=== PATIENT | female | born 1965 | race Caucasian/White ===

== ENCOUNTER 2016-07-26 19:52 | Emergency (ER) | payer OTHER ==
[~2016-07-26] VITALS: Ht 162.6 cm; Wt 107.6 kg
[~2016-07-26 19:52] MED LIST: 12 HOUR DECONG120 M1 PO; ACCOLATE20 MG PO; ADVAIR 250-501 EACH IH; ADVAIR 250/501 DISK IH; ADVAIR 500/501 DISK IH; ADVAIR IH; ALBUTEROL2.5 MG/3 M IH; ASPIR-TRIN325 M1 PO; ASTELIN137 MCG/0. BOTH NARES; ATARAX,VISTARIL25 MG PO; ATARAX,VISTARIL50 MG PO; ATIVAN0.5 MG PO; ATROVENT 00.5 MG/2.5 IH; AUGMENTIN 875-1 EACH PO; AUGMENTIN875 MG PO; AVENTYL,PAMELOR25 MG PO; AZITHROMYCIN500 M1 PO; BACTRIM,SEPT1 TABLET PO; BENADRYL25 MG PO; BENTYL20 MG PO; CARAFATE1 GM PO; CARAFATE100 MG/ML PO; CELEBREX200 MG PO; CELEXA20 MG PO; CLEOCIN600 MG PO; CLONAZEPAM0.5 MG PO; CLONAZEPAM1 MG PO; COZAAR50 MG PO; DELTASONE20 MG PO; DESYREL100 MG PO; DILAUDID2 MG PO; DITROPAN XL10 MG PO; DOCUSATE SODIU100 MG PO; DOXYCYCLINE HY100 MG PO; Desyrel PO; EFFEXOR XR150 MG PO; ENDOCET 5-3251 EACH PO; Ecotrin PO; FEOSOL325 MG PO; FIORICET,ESG1 TABLET PO; FLONASE16 G1 BOTH NARES; FLORASTOR250 MG PO; FLOVENT 22120 INHALA IH; FLOVENT DISKUS1 DIS2 IH; FLUCONAZOLE200 MG PO; FLUOXETINE HCL20 MG PO; Feosol PO; Flonase BOTH NARES; Flovent 220 mcg IH; GABAPENTIN300 MG PO; GLIPIZIDE XL10 M1 PO; GLIPIZIDE XL10 MG PO; GLIPIZIDE10 M1 PO; GLIPIZIDE10 MG PO; GLUCOTROL XL10 MG; GLUCOTROL XL10 MG PO; Glucotrol PO; IMITREX100 MG PO; KEFLEX500 MG PO; KLONOPIN0.25 MG PO; KLONOPIN0.5 M1 PO; KLONOPIN1 MG PO; KlonoPIN PO; LEVAQUIN500 MG PO; LEVAQUIN750 MG PO; LEVOTHROID,S0.112 MG PO; LEVOXYL175 MCG PO; LEXAPRO10 MG PO; LEXAPRO20 MG PO; LIDODERM 5% P1 PATCH TD; LINZESS290 MCG PO; LISINOPRIL5 MG PO; LOPRESSOR25 MG PO; LOSARTAN POTASS50 MG PO; Levothroid,Synthroid PO; Lopressor PO; METFORMIN HCL1000 MG PO; METFORMIN HCL500 MG PO; METHOCARBAMOL500 MG PO; METOPROLOL TART25 MG PO; MIRALAX255 GM PO; MYRBETRIQ ER PO; MYRBETRIQ50 MG PO; NASONEX17 GM BOTH NARES; NORTRIPTYLINE H25 MG PO; NORVASC5 MG PO; NOVOLOG PE100 UNITS/ SC; NYSTATIN15 GM TP; OMEPRAZOLE40 M1 PO; OPANA ER20 MG PO; OPANA ER40 MG PO; OPANA IR10 MG PO; ORGAN-I NR200 MG PO; PEN-VEE K,VEET500 MG PO; PERCOCET 10/1 TABLET PO; PERCOCET 5/31 TABLET PO; PHENERGAN25 MG PR; PRAVACHOL80 MG PO; PRAVASTATIN SOD40 MG PO; PREDNISONE10 MG PO; PREDNISONE20 MG PO; PREDNISONE5 MG PO; PREDNISONE50 MG PO; PRILOSEC20 MG PO; PRILOSEC40 MG PO; PROVENTIL,2.5 MG/0.5 IH; PROVENTIL,2.5 MG/3 M IH; PROVENTIL17 GM IH; PROZAC20 MG PO; PROZAC40 MG PO; PROzac PO; Percocet 7.5/325,End PO; Proventil,Ventolin H IH; Prozac PO; RANITIDINE HCL150 MG PO; RAPIFLUX20 MG PO; ROBAXIN500 MG PO; SENOKOT S,PE1 TABLET PO; SEROQUEL XR150 MG PO; SEROQUEL12.5 MG PO; SEROQUEL50 MG PO; SEROquel PO; SIMVASTATIN80 M1 PO; SIMVASTATIN80 MG PO; SPIRIVA1 INHALATI IH; SYNTHROID112 MCG PO; SYNTHROID137 MCG PO; THEOCHRON200 MG PO; TRAZODONE HCL100 MG PO; TRAZODONE HCL50 MG PO; TYLENOL EXTRA500 MG PO; Tessalon Perle PO; Tylenol Regular Stre PO; UNISOM SLEEP AI25 MG PO; VENTOLIN HFA18 GM IH; VESICARE10 MG PO; VIBRAMYCIN100 MG PO; VICODIN 5-3001 EACH PO; Vicodin,Lortab 5/500 PO; Vicodin,Norco 5/325 PO; XANAX1 MG PO; ZANTAC150 M1 PO; ZANTAC150 MG PO; ZESTRIL,PRINIVI10 M1 PO; ZESTRIL,PRINIVIL5 MG PO; ZESTRIL10 MG PO; ZITHROMAX Z-PA250 MG PO; ZITHROMAX250 MG PO; ZOCOR20 MG PO; ZOCOR80 MG PO; ZOFRAN ODT4 MG PO; ZOFRAN4 MG PO; ZOFRAN8 MG PO; ZOLOFT50 MG PO; ZONEGRAN100 MG PO; ZYRTEC10 M2 PO; Zantac PO; Zestril,Prinivil PO; Zocor PO; ZyrTEC PO; [UNRECOGNIZED DRUG - OTHER]
[2016-07-26 20:28] LABS: HEMATOCRIT 33.1 % (36.0-46.0); MCH 25.1 PG (29.0-34.0); MCHC 30.2 G/DL (30.0-36.0); MEAN PLAT.VOLUME 9.3 uM^3 (9.5-12.4); PLATELET COUNT 178 K/uL (156-360); RBC DIS.WIDTH-CV 17.6 % (11.8-14.6); RBC DIS.WIDTH-SD 52.6 % (39-53); RED BLOOD COUNT 3.99 M/uL (3.80-5.20); WHITE BLOOD COUNT 8.1 K/uL (4.1-10.2)
[2016-07-26 20:40] LABS: CHLORIDE 111 mEq/L (99-109); POTASSIUM 4.3 mEq/L (3.7-5.4); SODIUM 143 mEq/L (136-147)
[2016-07-26 20:42] LABS: GLUCOSE 101 mg/dL (70-99)
[2016-07-26 20:43] LABS: ANION GAP 10 MEQ/L (2-14)
[2016-07-26 20:46] LABS: GFR ESTIMATE (CALCULATED) > 59 mL/min/
[2016-07-26 20:47] LABS: UREA NITROGEN (BUN) 7 mg/dL (9-23)
[2016-07-26 20:54] LABS: TROP-I INTERPRETATION NEGATIVE; TROPONIN-I 0.01 ng/mL (0.0-0.30)
[2016-07-26 22:51] LABS: TOTAL BILIRUBIN 0.8 mg/dL (0.0-1.0)
[2016-07-26 22:52] LABS: ALKALINE PHOSPHATASE 140 IU/L (3-129)
[2016-07-26 22:54] LABS: DIRECT BILIRUBIN 0.4 mg/dL (0.0-0.3)
[2016-07-26 22:55] LABS: LIPASE 97 U/L (1.0-51.0)
[2016-07-27] MEDS ORDERED: PREDNISONE20 MG PO (00:48)
[2016-07-27] MEDS ORDERED: VENTOLIN HFA18 GM IH (00:48)
[2016-07-27] MEDS ORDERED: ZITHROMAX Z-PA250 MG PO (00:49)
[2016-07-27 01:05] VITALS: BP 116/72
== END 2016-07-27 01:33 | disposition home or self-care (01) ==
LOC: EME 19:52
DX: J20.9 Acute bronchitis, unspecified (principal); R10.9 Unspecified abdominal pain; R11.2 Nausea with vomiting, unspecified; R19.7 Diarrhea, unspecified; J44.0 Chronic obstructive pulmonary disease with (acute) lower respiratory infection; J45.909 Unspecified asthma, uncomplicated; R00.0 Tachycardia, unspecified; K58.9 Irritable bowel syndrome, unspecified; K43.9 Ventral hernia without obstruction or gangrene; I10 Essential (primary) hypertension; E11.9 Type 2 diabetes mellitus without complications; E03.9 Hypothyroidism, unspecified; G89.29 Other chronic pain; Z79.891 Long term (current) use of opiate analgesic
CPT/HCPCS: 71020; 74176; 80048; 80076; 83605; 83690; 84484; 85027; 93005; 94640; 99281; 99284; J2270

== ENCOUNTER 2016-08-19 18:33 | Emergency (ER) | payer OTHER ==
[~2016-08-19] VITALS: Ht 165.1 cm; Wt 112.2 kg
[2016-08-19 19:04] LABS: HEMATOCRIT 29.1 % (36.0-46.0); MCH 25.2 PG (29.0-34.0); MCHC 30.2 G/DL (30.0-36.0); MCV 83.4 FL (83-99); MEAN PLAT.VOLUME 9.2 uM^3 (9.5-12.4); PLATELET COUNT 175 K/uL (156-360); RBC DIS.WIDTH-CV 17.5 % (11.8-14.6); RBC DIS.WIDTH-SD 51.6 % (39-53); RED BLOOD COUNT 3.49 M/uL (3.80-5.20); WHITE BLOOD COUNT 7.6 K/uL (4.1-10.2)
[2016-08-19 19:08] VITALS: BP 165/96
[2016-08-19 19:25] LABS: CHLORIDE 108 mEq/L (99-109); POTASSIUM 3.9 mEq/L (3.7-5.4); SODIUM 141 mEq/L (136-147)
[2016-08-19 19:30] VITALS: BP 133/75
[2016-08-19 19:31] LABS: ANION GAP 9 MEQ/L (2-14); GFR ESTIMATE (CALCULATED) > 59 mL/min/; GLUCOSE 177 mg/dL (70-99)
[2016-08-19 19:32] LABS: UREA NITROGEN (BUN) 9 mg/dL (9-23)
[2016-08-19 19:47] LABS: TOTAL BILIRUBIN 0.6 mg/dL (0.0-1.0)
[2016-08-19 19:49] LABS: ALKALINE PHOSPHATASE 146 IU/L (3-129)
[2016-08-19 19:51] LABS: DIRECT BILIRUBIN 0.3 mg/dL (0.0-0.3)
[2016-08-19 19:52] LABS: LIPASE 33 U/L (1.0-51.0)
[2016-08-19 19:58] LABS: TROP-I INTERPRETATION NEGATIVE; TROPONIN-I < 0.01 ng/mL (0.0-0.30)
[2016-08-19 20:17] LABS: INTERNAL CONTROL VALID? YES; MONOSPOT (MONONUCLEOSIS SEROL) NEGATIVE
[2016-08-19 20:30] LABS: INFLUENZA A VIRAL ANTIGEN NEGATIVE; INFLUENZA B VIRAL ANTIGEN NEGATIVE
[2016-08-19] MEDS ORDERED: ZOFRAN4 MG PO (21:04)
[2016-08-19] MEDS ORDERED: LEVAQUIN750 MG PO (21:05)
[2016-08-19 21:22] VITALS: BP 131/64
== END 2016-08-19 21:22 | disposition home or self-care (01) ==
LOC: EME 18:33
PROVIDERS: Emergency Medicine
DX: J44.0 Chronic obstructive pulmonary disease with (acute) lower respiratory infection (principal); J20.9 Acute bronchitis, unspecified; E86.0 Dehydration; J45.909 Unspecified asthma, uncomplicated; E11.9 Type 2 diabetes mellitus without complications; E78.5 Hyperlipidemia, unspecified; I10 Essential (primary) hypertension; K21.9 Gastro-esophageal reflux disease without esophagitis; E03.9 Hypothyroidism, unspecified; Z87.440 Personal history of urinary (tract) infections
CPT/HCPCS: 71020; 74176; 80048; 80076; 83690; 84484; 85027; 86308; 87502; 93005; 99281; 99285; J2270; J2405; J7030

== ENCOUNTER 2016-08-22 17:59 | Emergency (ER) | payer OTHER ==
[~2016-08-22] VITALS: Ht 162.6 cm; Wt 110.8 kg
[2016-08-22 19:57] LABS: HEMATOCRIT 27.3 % (36.0-46.0); MCH 25.3 PG (29.0-34.0); MCHC 30.4 G/DL (30.0-36.0); MCV 83.2 FL (83-99); MEAN PLAT.VOLUME 9.7 uM^3 (9.5-12.4); PLATELET COUNT 187 K/uL (156-360); RBC DIS.WIDTH-CV 17.2 % (11.8-14.6); RBC DIS.WIDTH-SD 52.6 % (39-53); RED BLOOD COUNT 3.28 M/uL (3.80-5.20); WHITE BLOOD COUNT 7.2 K/uL (4.1-10.2)
[2016-08-22 20:11] LABS: D-DIMER ELISA 0.93 mg/L FEU (< 0.57); INTER. NORMALIZED RATIO 1.4; PTT 28.7 (25-32)
[2016-08-22 20:28] LABS: TROP-I INTERPRETATION NEGATIVE; TROPONIN-I 0.01 ng/mL (0.0-0.30)
[2016-08-22 22:15] LABS: CHLORIDE 111 mEq/L (99-109); POTASSIUM 4.1 mEq/L (3.7-5.4); SODIUM 143 mEq/L (136-147)
[2016-08-22 22:16] LABS: GLUCOSE 98 mg/dL (70-99)
[2016-08-22 22:18] LABS: ANION GAP 12 MEQ/L (2-14)
[2016-08-22 22:20] LABS: GFR ESTIMATE (CALCULATED) > 59 mL/min/
[2016-08-22 22:21] LABS: UREA NITROGEN (BUN) 7 mg/dL (9-23)
[2016-08-23 00:01] VITALS: BP 123/92
== END 2016-08-23 00:04 | disposition home or self-care (01) ==
LOC: EME 17:59
PROVIDERS: Physician Assistant
DX: R09.89 Other specified symptoms and signs involving the circulatory and respiratory systems (principal); R07.9 Chest pain, unspecified; R06.02 Shortness of breath; R51 Headache; R05 Cough; J02.9 Acute pharyngitis, unspecified; R10.9 Unspecified abdominal pain; R11.0 Nausea; R00.0 Tachycardia, unspecified; R79.1 Abnormal coagulation profile; J44.9 Chronic obstructive pulmonary disease, unspecified; J45.909 Unspecified asthma, uncomplicated; G89.29 Other chronic pain; I10 Essential (primary) hypertension; E11.9 Type 2 diabetes mellitus without complications; E03.9 Hypothyroidism, unspecified; Z79.891 Long term (current) use of opiate analgesic
CPT/HCPCS: 71020; 71275; 80048; 84484; 85027; 85379; 85610; 85730; 93005; 94640; 99281; 99284; J2060; J2405; J2930; J3010; J7030

== ENCOUNTER 2016-12-14 14:42 | Emergency (ER) | payer OTHER ==
[~2016-12-14] VITALS: Ht 162.6 cm; Wt 104.8 kg
[2016-12-14 16:30] LABS: HEMATOCRIT 33.5 % (36.0-46.0); MCH 26.6 PG (29.0-34.0); MCHC 31.3 G/DL (30.0-36.0); MEAN PLAT.VOLUME 10.2 uM^3 (9.5-12.4); PLATELET COUNT 140 K/uL (156-360); RBC DIS.WIDTH-CV 20.6 % (11.8-14.6); RBC DIS.WIDTH-SD 64.4 % (39-53); RED BLOOD COUNT 3.94 M/uL (3.80-5.20); WHITE BLOOD COUNT 6.5 K/uL (4.1-10.2)
[2016-12-14 16:32] LABS: CHLORIDE 113 mEq/L (99-109); POTASSIUM 3.8 mEq/L (3.7-5.4); SODIUM 144 mEq/L (136-147)
[2016-12-14 16:35] LABS: GLUCOSE 83 mg/dL (70-99)
[2016-12-14 16:36] LABS: ANION GAP 10 MEQ/L (2-14)
[2016-12-14 16:38] LABS: ALKALINE PHOSPHATASE 129 IU/L (3-129); GFR ESTIMATE (CALCULATED) > 59 mL/min/
[2016-12-14 16:39] LABS: UREA NITROGEN (BUN) 11 mg/dL (9-23)
[2016-12-14 16:50] LABS: QUANTITATIVE HCG < 4.0 MIU/ML
[2016-12-14 17:23] LABS: ADD MIUA? YES; BILIRUBIN NEGATIVE; BLOOD NEGATIVE; COLOR YELLOW ((YELLOW)); GLUCOSE (STRIP) NEGATIVE; KETONES NEGATIVE; LEUKOCYTES MODERATE; NITRITE NEGATIVE; PROTEIN (STRIP) 30; SPECIFIC GRAVITY 1.016 (1.000-1.030)
[2016-12-14 17:25] LABS: LIPASE 13 U/L (1.0-51.0)
[2016-12-14 17:37] LABS: BACTERIA 1+ /HPF; EPITHELIAL CELLS RARE /HPF; MUCUS TRACE /LPF; RED BLOOD CELLS 0-5 /HPF (0-5); UCUL ADDED? NO
[2016-12-14] MEDS ORDERED: CIPROFLOXACIN500 M1 PO (21:12)
[2016-12-14] MEDS ORDERED: FLAGYL500 MG PO (21:12)
[2016-12-14 21:56] VITALS: BP 136/85
== END 2016-12-14 21:57 | disposition home or self-care (01) ==
LOC: EME 14:42
DX: K52.9 Noninfective gastroenteritis and colitis, unspecified (principal); N39.0 Urinary tract infection, site not specified; K74.60 Unspecified cirrhosis of liver; I10 Essential (primary) hypertension; E11.9 Type 2 diabetes mellitus without complications; Z79.84 Long term (current) use of oral hypoglycemic drugs; J44.9 Chronic obstructive pulmonary disease, unspecified; E78.5 Hyperlipidemia, unspecified; K21.9 Gastro-esophageal reflux disease without esophagitis; F32.9 Major depressive disorder, single episode, unspecified; E03.9 Hypothyroidism, unspecified
CPT/HCPCS: 74177; 80053; 81003; 83690; 84702; 85027; 99281; 99285; J1200; J1885; J2270; J2765; J7030

== ENCOUNTER 2017-01-01 09:29 | Inpatient (IN) | payer OTHER ==
[~2017-01-01] VITALS: Ht 162.6 cm; Wt 110.9 kg
[~2017-01-01 09:29] MED LIST changes: +CIPROFLOXACIN500 M1 PO; +FLAGYL500 MG PO; +IMITREX6 MG/0.53 SC; +TESSALON200 MG PO
[2017-01-01 12:27] LABS: POINT-OF-CARE METER ID UU13113694
[2017-01-01 12:54] VITALS: BP 144/71
[2017-01-01 17:03] LABS: POINT-OF-CARE METER ID UU13113675
[2017-01-01 18:23] VITALS: BP 141/77
[2017-01-01 20:54] LABS: HEMATOCRIT 31.2 % (36.0-46.0); MCH 27.7 PG (29.0-34.0); MCHC 32.1 G/DL (30.0-36.0); MCV 86.4 FL (83-99); MEAN PLAT.VOLUME 9.2 uM^3 (9.5-12.4); RBC DIS.WIDTH-CV 18.5 % (11.8-14.6); RBC DIS.WIDTH-SD 58.4 % (39-53); RED BLOOD COUNT 3.61 M/uL (3.80-5.20); WHITE BLOOD COUNT 8.8 K/uL (4.1-10.2)
[2017-01-01 21:18] LABS: ANION GAP 14 MEQ/L (2-14); CHLORIDE 102 MEQ/L (99-109); GFR ESTIMATE (CALCULATED) > 59 mL/min/; GLUCOSE 220 mg/dL (70-99); POTASSIUM 4.2 MEQ/L (3.7-5.4); SAMPLE HEMOLYSIS CHECK 0; SAMPLE ICTERIC CHECK 0; SAMPLE LIPEMIA CHECK 0; SODIUM 137 MEQ/L (136-147); UREA NITROGEN (BUN) 12 mg/dL (9-23)
[2017-01-01 21:53] LABS: PLATELET COUNT 117 K/uL (156-360)
[2017-01-02 00:19] VITALS: BP 139/65
[2017-01-02 04:01] VITALS: BP 132/71
[2017-01-02 06:10] LABS: POINT-OF-CARE METER ID UU14208750
[2017-01-02 07:13] LABS: HEMATOCRIT 33.5 % (36.0-46.0); MCH 27.5 PG (29.0-34.0); MCHC 32.2 G/DL (30.0-36.0); MCV 85.2 FL (83-99); MEAN PLAT.VOLUME 10.4 uM^3 (9.5-12.4); RBC DIS.WIDTH-CV 18.5 % (11.8-14.6); RBC DIS.WIDTH-SD 57.7 % (39-53); RED BLOOD COUNT 3.93 M/uL (3.80-5.20); WHITE BLOOD COUNT 15.9 K/uL (4.1-10.2)
[2017-01-02 07:16] LABS: PLATELET COUNT 187 K/uL (156-360)
[2017-01-02 07:22] LABS: ANION GAP 11 MEQ/L (2-14); CHLORIDE 100 MEQ/L (99-109); GFR ESTIMATE (CALCULATED) > 59 mL/min/; GLUCOSE 216 mg/dL (70-99); POTASSIUM 4.5 MEQ/L (3.7-5.4); SAMPLE HEMOLYSIS CHECK 0; SAMPLE ICTERIC CHECK 0; SAMPLE LIPEMIA CHECK 0; SODIUM 136 MEQ/L (136-147); UREA NITROGEN (BUN) 10 mg/dL (9-23)
[2017-01-02 08:05] VITALS: BP 144/69
[2017-01-02 11:55] VITALS: BP 144/76
[2017-01-02 12:04] LABS: POINT-OF-CARE METER ID UU14208750
[2017-01-02 15:15] VITALS: BP 164/82
[2017-01-02 16:14] LABS: POINT-OF-CARE METER ID UU14208750
[2017-01-02 20:39] VITALS: BP 144/76
[2017-01-02 21:42] LABS: POINT-OF-CARE METER ID UU14208750
[2017-01-03 00:28] VITALS: BP 146/67
[2017-01-03 01:10] LABS: POINT-OF-CARE METER ID UU14208750
[2017-01-03 06:38] LABS: POINT-OF-CARE METER ID UU14208750
[2017-01-03 07:04] LABS: HEMATOCRIT 33.1 % (36.0-46.0); MCH 26.6 PG (29.0-34.0); MCHC 31.4 G/DL (30.0-36.0); MCV 84.7 FL (83-99); MEAN PLAT.VOLUME 10.1 uM^3 (9.5-12.4); PLATELET COUNT 161 K/uL (156-360); RBC DIS.WIDTH-CV 18.5 % (11.8-14.6); RBC DIS.WIDTH-SD 57.2 % (39-53); RED BLOOD COUNT 3.91 M/uL (3.80-5.20); WHITE BLOOD COUNT 10.6 K/uL (4.1-10.2)
[2017-01-03 07:28] LABS: ANION GAP 11 MEQ/L (2-14); CHLORIDE 103 MEQ/L (99-109); GFR ESTIMATE (CALCULATED) > 59 mL/min/; GLUCOSE 163 mg/dL (70-99); POTASSIUM 4.1 MEQ/L (3.7-5.4); SAMPLE HEMOLYSIS CHECK 0; SAMPLE ICTERIC CHECK 0; SAMPLE LIPEMIA CHECK 0; SODIUM 139 MEQ/L (136-147); UREA NITROGEN (BUN) 9 mg/dL (9-23)
[2017-01-03 07:40] VITALS: BP 143/74
[2017-01-03] MEDS ORDERED: OXYCODONE HCL10 MG PO (09:51)
== END 2017-01-03 10:45 | disposition home or self-care (01) | DRG 742 ==
LOC: 2SOUTH 09:29 → 2EAST 11:37 → 2SOUTH 11:37 → 2EAST 17:56
PROVIDERS: Obstetrics & Gynecology Gynecologic Oncology
DX: N80.0 Endometriosis of uterus (principal); Z68.44 Body mass index [BMI] 60.0-69.9, adult; E66.9 Obesity, unspecified; N83.201 Unspecified ovarian cyst, right side; K42.9 Umbilical hernia without obstruction or gangrene; G89.29 Other chronic pain
CPT/HCPCS: 36415; 80048; 82948; 85027; 86870; 86900; 86901; 86920; 86999; 88302; 88307; 94640; 94640 76; 94760; 94799; 99202; C1758; J0131; J0330; J0690; J1170; J1650; J1815; J2250; J2405; J2550; J2710; J2765; J3010; J7120

== ENCOUNTER 2017-01-10 17:15 | Emergency (ER) | payer OTHER ==
[~2017-01-10] VITALS: Ht 162.6 cm; Wt 100.1 kg
[~2017-01-10 17:15] MED LIST changes: +OXYCODONE HCL10 MG PO
[2017-01-10 18:01] LABS: HEMATOCRIT 34.2 % (36.0-46.0); MCV 87.2 FL (83-99); MEAN PLAT.VOLUME 9.4 uM^3 (9.5-12.4); PLATELET COUNT 162 K/uL (156-360); RBC DIS.WIDTH-CV 17.6 % (11.8-14.6); RBC DIS.WIDTH-SD 56.6 % (39-53); RED BLOOD COUNT 3.92 M/uL (3.80-5.20); WHITE BLOOD COUNT 9.4 K/uL (4.1-10.2)
[2017-01-10 18:18] LABS: CHLORIDE 108 mEq/L (99-109); SODIUM 141 mEq/L (136-147)
[2017-01-10 18:20] LABS: GLUCOSE 205 mg/dL (70-99)
[2017-01-10 18:22] LABS: ANION GAP 9 MEQ/L (2-14)
[2017-01-10 18:24] LABS: GFR ESTIMATE (CALCULATED) > 59 mL/min/
[2017-01-10 18:25] LABS: TROP-I INTERPRETATION NEGATIVE; TROPONIN-I < 0.01 ng/mL (0.0-0.30); UREA NITROGEN (BUN) 9 mg/dL (9-23)
[2017-01-10] MEDS ORDERED: ZITHROMAX Z-PA250 MG PO (20:10)
[2017-01-10 20:35] VITALS: BP 118/62
== END 2017-01-10 20:31 | disposition home or self-care (01) ==
LOC: EME 17:15
DX: J44.0 Chronic obstructive pulmonary disease with (acute) lower respiratory infection (principal); J18.9 Pneumonia, unspecified organism; Z98.890 Other specified postprocedural states; K21.9 Gastro-esophageal reflux disease without esophagitis; E78.5 Hyperlipidemia, unspecified; E03.9 Hypothyroidism, unspecified; K58.9 Irritable bowel syndrome, unspecified; F31.9 Bipolar disorder, unspecified; Z87.440 Personal history of urinary (tract) infections; Z79.84 Long term (current) use of oral hypoglycemic drugs
CPT/HCPCS: 71020; 71275; 80048; 84484; 85027; 85379; 93005; 94640; 99281; 99285

== ENCOUNTER 2017-01-26 12:01 | Emergency (ER) | payer OTHER ==
[~2017-01-26] VITALS: Ht 162.6 cm; Wt 104.7 kg
[2017-01-26 13:07] LABS: HEMATOCRIT 30.7 % (36.0-46.0); MCH 27.7 PG (29.0-34.0); MCHC 31.3 G/DL (30.0-36.0); MCV 88.7 FL (83-99); MEAN PLAT.VOLUME 9.5 uM^3 (9.5-12.4); PLATELET COUNT 127 K/uL (156-360); RBC DIS.WIDTH-SD 54.6 % (39-53); RED BLOOD COUNT 3.46 M/uL (3.80-5.20); WHITE BLOOD COUNT 6.8 K/uL (4.1-10.2)
[2017-01-26 13:18] LABS: CHLORIDE 110 mEq/L (99-109); POTASSIUM 4.1 mEq/L (3.7-5.4); SODIUM 139 mEq/L (136-147)
[2017-01-26 13:20] LABS: GLUCOSE 177 mg/dL (70-99)
[2017-01-26 13:22] LABS: ANION GAP 4 MEQ/L (2-14); TOTAL BILIRUBIN 0.6 mg/dL (0.0-1.0)
[2017-01-26 13:24] LABS: ALKALINE PHOSPHATASE 160 IU/L (3-129); GFR ESTIMATE (CALCULATED) > 59 mL/min/
[2017-01-26 13:25] LABS: UREA NITROGEN (BUN) 8 mg/dL (9-23)
[2017-01-26 14:06] LABS: TROP-I INTERPRETATION NEGATIVE; TROPONIN-I < 0.01 ng/mL (0.0-0.30)
[2017-01-26] MEDS ORDERED: DOXYCYCLINE HY100 MG PO (17:54)
[2017-01-26] MEDS ORDERED: AZITHROMYCIN250 MG1 PO (17:55)
[2017-01-26 20:35] VITALS: BP 139/73
== END 2017-01-26 20:36 | disposition home or self-care (01) ==
LOC: EME 12:01
PROVIDERS: Nurse Practitioner Family
DX: J44.0 Chronic obstructive pulmonary disease with (acute) lower respiratory infection (principal); J18.9 Pneumonia, unspecified organism; N93.9 Abnormal uterine and vaginal bleeding, unspecified; Z98.890 Other specified postprocedural states; K74.60 Unspecified cirrhosis of liver; R18.8 Other ascites; K76.6 Portal hypertension; E03.9 Hypothyroidism, unspecified; E11.9 Type 2 diabetes mellitus without complications; Z79.84 Long term (current) use of oral hypoglycemic drugs; Z90.710 Acquired absence of both cervix and uterus; Z90.49 Acquired absence of other specified parts of digestive tract
CPT/HCPCS: 71020; 71275; 74177; 80053; 84484; 85027; 85379; 93005; 99281; 99285; J7030

== ENCOUNTER 2017-02-10 13:39 | Emergency (ER) | payer OTHER ==
[~2017-02-10] VITALS: Ht 162.6 cm; Wt 100.4 kg
[~2017-02-10 13:39] MED LIST changes: +AZITHROMYCIN250 MG1 PO
[2017-02-10 14:52] LABS: HEMATOCRIT 33.2 % (36.0-46.0); MCH 27.4 PG (29.0-34.0); MCHC 31.3 G/DL (30.0-36.0); MCV 87.4 FL (83-99); PLATELET COUNT 147 K/uL (156-360); RBC DIS.WIDTH-CV 16.4 % (11.8-14.6); RBC DIS.WIDTH-SD 53.1 % (39-53); WHITE BLOOD COUNT 8.9 K/uL (4.1-10.2)
[2017-02-10 15:30] LABS: CHLORIDE 106 mEq/L (99-109); SODIUM 138 mEq/L (136-147)
[2017-02-10 15:33] LABS: ANION GAP 8 MEQ/L (2-14)
[2017-02-10 15:34] LABS: TOTAL BILIRUBIN 1.4 mg/dL (0.0-1.0)
[2017-02-10 15:36] LABS: ALKALINE PHOSPHATASE 152 IU/L (3-129); GFR ESTIMATE (CALCULATED) > 59 mL/min/
[2017-02-10 15:37] LABS: UREA NITROGEN (BUN) 13 mg/dL (9-23)
[2017-02-10 15:39] LABS: LIPASE 7 U/L (1.0-51.0)
[2017-02-10 15:57] LABS: ADD MIUA? YES; BILIRUBIN NEGATIVE; BLOOD NEGATIVE; COLOR YELLOW ((YELLOW)); GLUCOSE (STRIP) NEGATIVE; KETONES NEGATIVE; LEUKOCYTES NEGATIVE; NITRITE NEGATIVE; PROTEIN (STRIP) NEGATIVE; SPECIFIC GRAVITY 1.018 (1.000-1.030)
[2017-02-10 16:01] LABS: BACTERIA NONE SEEN /HPF; EPITHELIAL CELLS RARE /HPF; MUCUS 1+ /LPF; RED BLOOD CELLS 0-5 /HPF (0-5); UCUL ADDED? NO; WHITE BLOOD CELLS 0-5 /HPF (0-5)
[2017-02-10 16:11] LABS: QUANTITATIVE HCG < 4.0 MIU/ML
[2017-02-10] MEDS ORDERED: ZOFRAN ODT4 MG PO (16:41)
[2017-02-10] MEDS ORDERED: PERCOCET 5/31 TABLET PO (16:41)
[2017-02-10 17:13] VITALS: BP 142/78
== END 2017-02-10 17:14 | disposition home or self-care (01) ==
LOC: EME 13:39
DX: R10.32 Left lower quadrant pain (principal); R11.0 Nausea; K58.9 Irritable bowel syndrome, unspecified; K21.9 Gastro-esophageal reflux disease without esophagitis; E11.9 Type 2 diabetes mellitus without complications; J44.9 Chronic obstructive pulmonary disease, unspecified; E78.5 Hyperlipidemia, unspecified; E03.9 Hypothyroidism, unspecified; Z87.440 Personal history of urinary (tract) infections; Z79.84 Long term (current) use of oral hypoglycemic drugs
CPT/HCPCS: 71020; 74177; 80053; 81003; 83690; 84702; 85027; 99281; 99284; J1885; J2405; J3010; J7030

== ENCOUNTER 2017-03-03 17:46 | Emergency (ER) | payer OTHER ==
[~2017-03-03] VITALS: Ht 162.6 cm; Wt 101.7 kg
[2017-03-03 18:22] LABS: HEMATOCRIT 32.6 % (36.0-46.0); MCH 27.5 PG (29.0-34.0); MCHC 31.3 G/DL (30.0-36.0); MCV 87.9 FL (83-99); MEAN PLAT.VOLUME 9.9 uM^3 (9.5-12.4); PLATELET COUNT 150 K/uL (156-360); RBC DIS.WIDTH-CV 15.6 % (11.8-14.6); RBC DIS.WIDTH-SD 50.4 % (39-53); RED BLOOD COUNT 3.71 M/uL (3.80-5.20); WHITE BLOOD COUNT 7.5 K/uL (4.1-10.2)
[2017-03-03 18:35] LABS: CHLORIDE 109 mEq/L (99-109); POTASSIUM 4.2 mEq/L (3.7-5.4); SODIUM 140 mEq/L (136-147)
[2017-03-03 18:36] LABS: GLUCOSE 116 mg/dL (70-99)
[2017-03-03 18:38] LABS: ANION GAP 10 MEQ/L (2-14)
[2017-03-03 18:40] LABS: GFR ESTIMATE (CALCULATED) > 59 mL/min/
[2017-03-03 18:41] LABS: UREA NITROGEN (BUN) 15 mg/dL (9-23)
[2017-03-03 18:49] LABS: TROP-I INTERPRETATION NEGATIVE; TROPONIN-I < 0.01 ng/mL (0.0-0.30)
[2017-03-03 20:52] LABS: TROP-I INTERPRETATION NEGATIVE; TROPONIN-I < 0.01 ng/mL (0.0-0.30)
[2017-03-03 21:29] VITALS: BP 129/62
== END 2017-03-03 21:30 | disposition home or self-care (01) ==
LOC: EME 17:46
PROVIDERS: Nurse Practitioner Family; Physician Assistant Medical
DX: R05 Cough (principal); R07.9 Chest pain, unspecified; Z98.890 Other specified postprocedural states; J44.9 Chronic obstructive pulmonary disease, unspecified; E78.5 Hyperlipidemia, unspecified; K21.9 Gastro-esophageal reflux disease without esophagitis; Z90.49 Acquired absence of other specified parts of digestive tract; Z87.440 Personal history of urinary (tract) infections
CPT/HCPCS: 71020; 80048; 84484; 85027; 85379; 93005; 94640; 99281; 99284; J7030

== ENCOUNTER 2017-05-05 10:15 | Emergency (ER) | payer OTHER ==
[~2017-05-05] VITALS: Ht 162.6 cm; Wt 102.2 kg
[2017-05-05 11:27] LABS: HEMATOCRIT 29.2 % (36.0-46.0); MCH 25.6 PG (29.0-34.0); MCHC 30.5 G/DL (30.0-36.0); MCV 83.9 FL (83-99); PLATELET COUNT 129 K/uL (156-360); RBC DIS.WIDTH-CV 16.1 % (11.8-14.6); RED BLOOD COUNT 3.48 M/uL (3.80-5.20); WHITE BLOOD COUNT 5.1 K/uL (4.1-10.2)
[2017-05-05 11:38] LABS: CHLORIDE 109 mEq/L (99-109); POTASSIUM 3.7 mEq/L (3.7-5.4); SODIUM 140 mEq/L (136-147)
[2017-05-05 11:40] LABS: GLUCOSE 119 mg/dL (70-99)
[2017-05-05 11:41] LABS: ANION GAP 9 MEQ/L (2-14)
[2017-05-05 11:43] LABS: GFR ESTIMATE (CALCULATED) > 59 mL/min/
[2017-05-05 11:44] LABS: UREA NITROGEN (BUN) 8 mg/dL (9-23)
[2017-05-05 11:46] LABS: TROP-I INTERPRETATION NEGATIVE; TROPONIN-I < 0.01 ng/mL (0.0-0.30)
[2017-05-05 13:08] LABS: ADD MIUA? YES; BILIRUBIN NEGATIVE; BLOOD NEGATIVE; COLOR YELLOW ((YELLOW)); GLUCOSE (STRIP) NEGATIVE; KETONES NEGATIVE; LEUKOCYTES TRACE; NITRITE NEGATIVE; PROTEIN (STRIP) NEGATIVE; SPECIFIC GRAVITY 1.019 (1.000-1.030)
[2017-05-05 13:12] LABS: BACTERIA RARE /HPF; CALCIUM OXALATE CRYSTALS 2+ /HPF; EPITHELIAL CELLS RARE /HPF; MUCUS NONE SEEN /LPF; RED BLOOD CELLS 0-5 /HPF (0-5); UCUL ADDED? YES; WHITE BLOOD CELLS 20-30 /HPF (0-5)
[2017-05-05] MEDS ORDERED: KEFLEX500 MG PO (15:19)
[2017-05-05] MEDS ORDERED: TESSALON200 MG PO (15:19)
[2017-05-05] MEDS ORDERED: GUAIFENESIN600 M1 PO (15:19)
[2017-05-05] MEDS ORDERED: ROBITUSSIN NIG237 ML PO (15:19)
[2017-05-05 15:51] VITALS: BP 136/66
== END 2017-05-05 15:52 | disposition home or self-care (01) ==
LOC: EME 10:15
PROVIDERS: Nurse Practitioner Family
DX: N39.0 Urinary tract infection, site not specified (principal); J44.0 Chronic obstructive pulmonary disease with (acute) lower respiratory infection; J20.8 Acute bronchitis due to other specified organisms; D64.9 Anemia, unspecified; I10 Essential (primary) hypertension; E11.9 Type 2 diabetes mellitus without complications; E78.5 Hyperlipidemia, unspecified; K21.9 Gastro-esophageal reflux disease without esophagitis; E03.9 Hypothyroidism, unspecified; K58.9 Irritable bowel syndrome, unspecified; F41.9 Anxiety disorder, unspecified; F32.9 Major depressive disorder, single episode, unspecified; Z77.22 Contact with and (suspected) exposure to environmental tobacco smoke (acute) (chronic); Z79.84 Long term (current) use of oral hypoglycemic drugs
CPT/HCPCS: 71020; 71275; 80048; 81003; 84484; 85027; 85379; 87077; 87086; 87186; 93005; 94640; 99281; 99285

== ENCOUNTER 2017-06-01 00:20 | Observation (INO) | payer OTHER ==
[~2017-06-01] VITALS: Ht 162.6 cm; Wt 95.5 kg
[~2017-06-01 00:20] MED LIST changes: +GUAIFENESIN600 M1 PO; +ROBITUSSIN NIG237 ML PO
[2017-06-01 01:07] LABS: HEMATOCRIT 34.8 % (36.0-46.0); MCH 26.9 PG (29.0-34.0); MCV 86.8 FL (83-99); MEAN PLAT.VOLUME 9.6 uM^3 (9.5-12.4); PLATELET COUNT 125 K/uL (156-360); RBC DIS.WIDTH-CV 21.8 % (11.8-14.6); RBC DIS.WIDTH-SD 68.1 % (39-53); RED BLOOD COUNT 4.01 M/uL (3.80-5.20); WHITE BLOOD COUNT 7.1 K/uL (4.1-10.2)
[2017-06-01 01:18] LABS: CHLORIDE 111 mEq/L (99-109); POTASSIUM 3.5 mEq/L (3.7-5.4); SODIUM 140 mEq/L (136-147)
[2017-06-01 01:21] LABS: GLUCOSE 144 mg/dL (70-99)
[2017-06-01 01:22] LABS: ANION GAP 11 MEQ/L (2-14); TOTAL BILIRUBIN 1.3 mg/dL (0.0-1.0)
[2017-06-01 01:24] LABS: ALKALINE PHOSPHATASE 152 IU/L (3-129); GFR ESTIMATE (CALCULATED) > 59 mL/min/
[2017-06-01 01:25] LABS: UREA NITROGEN (BUN) 9 mg/dL (9-23)
[2017-06-01 01:26] LABS: DIRECT BILIRUBIN 0.7 mg/dL (0.0-0.3)
[2017-06-01 01:28] LABS: LIPASE 9 U/L (1.0-51.0)
[2017-06-01 01:35] LABS: TROP-I INTERPRETATION NEGATIVE; TROPONIN-I < 0.01 ng/mL (0.0-0.30)
[2017-06-01 01:35] LABS: ADD MIUA? YES; BILIRUBIN NEGATIVE; BLOOD NEGATIVE; COLOR YELLOW ((YELLOW)); GLUCOSE (STRIP) NEGATIVE; KETONES NEGATIVE; LEUKOCYTES SMALL; NITRITE NEGATIVE; PROTEIN (STRIP) NEGATIVE; SPECIFIC GRAVITY 1.009 (1.000-1.030); UROBILINOGEN 0.2 MG/DL (0.2-1.0)
[2017-06-01 01:40] LABS: BACTERIA RARE /HPF; EPITHELIAL CELLS 1+ /HPF; MUCUS TRACE /LPF; RED BLOOD CELLS 0-5 /HPF (0-5); WHITE BLOOD CELLS 15-20 /HPF (0-5)
[2017-06-01 05:54] VITALS: BP 185/73
[2017-06-01 07:13] VITALS: BP 134/70
[2017-06-01 08:09] LABS: POINT-OF-CARE METER ID UU13113700
[2017-06-01 08:33] LABS: POINT-OF-CARE METER ID UU13113700
[2017-06-01 08:37] VITALS: BP 138/67
[2017-06-01 11:32] VITALS: BP 142/48
[2017-06-01 12:45] LABS: POINT-OF-CARE METER ID UU13113700
[2017-06-01] MEDS ORDERED: PROZAC10 MG PO (14:01)
[2017-06-01] MEDS ORDERED: SEROQUEL12.5 MG PO (14:06)
[2017-06-01] MEDS ORDERED: SEROQUEL XR150 MG PO (14:07)
[2017-06-01 15:36] VITALS: BP 137/77
[2017-06-01 17:45] LABS: POINT-OF-CARE METER ID UU13113700
[2017-06-01 19:13] VITALS: BP 146/69
[2017-06-01 21:13] LABS: POINT-OF-CARE METER ID UU13113700
[2017-06-02 00:27] VITALS: BP 143/72
[2017-06-02 05:29] LABS: HEMATOCRIT 32.1 % (36.0-46.0); MCH 27.1 PG (29.0-34.0); MCHC 30.8 G/DL (30.0-36.0); MCV 87.9 FL (83-99); MEAN PLAT.VOLUME 9.5 uM^3 (9.5-12.4); PLATELET COUNT 116 K/uL (156-360); RBC DIS.WIDTH-SD 69.3 % (39-53); RED BLOOD COUNT 3.65 M/uL (3.80-5.20); WHITE BLOOD COUNT 5.8 K/uL (4.1-10.2)
[2017-06-02 06:11] LABS: ANION GAP 8 MEQ/L (2-14); CHLORIDE 110 MEQ/L (99-109); GFR ESTIMATE (CALCULATED) > 59 mL/min/; GLUCOSE 162 mg/dL (70-99); SAMPLE HEMOLYSIS CHECK 0; SAMPLE ICTERIC CHECK 0; SAMPLE LIPEMIA CHECK 0; SODIUM 141 MEQ/L (136-147); UREA NITROGEN (BUN) 9 mg/dL (9-23)
[2017-06-02 07:00] VITALS: BP 149/75
[2017-06-02 08:20] LABS: POINT-OF-CARE METER ID UU13113831
[2017-06-02 10:59] VITALS: BP 117/59
[2017-06-02 12:05] LABS: POINT-OF-CARE METER ID UU13113831
[2017-06-02 16:53] LABS: POINT-OF-CARE METER ID UU13113831
== END 2017-06-02 17:30 | disposition home or self-care (01) ==
LOC: EME 00:20 → EDOF 05:01 → 5WEST 05:01 → ENRESERV 05:03 → 5WEST 05:43
PROVIDERS: Emergency Medicine; Hospitalist; Nurse Practitioner Adult Health; Physician Assistant
DX: K52.9 Noninfective gastroenteritis and colitis, unspecified (principal); E86.0 Dehydration; E87.6 Hypokalemia; R10.10 Upper abdominal pain, unspecified; N39.0 Urinary tract infection, site not specified; K21.9 Gastro-esophageal reflux disease without esophagitis; F31.64 Bipolar disorder, current episode mixed, severe, with psychotic features; R44.1 Visual hallucinations; E11.43 Type 2 diabetes mellitus with diabetic autonomic (poly)neuropathy; K31.84 Gastroparesis; F41.8 Other specified anxiety disorders; E03.9 Hypothyroidism, unspecified; E78.2 Mixed hyperlipidemia; I10 Essential (primary) hypertension; J43.9 Emphysema, unspecified; D64.9 Anemia, unspecified; R16.1 Splenomegaly, not elsewhere classified; E66.01 Morbid (severe) obesity due to excess calories; Z68.36 Body mass index [BMI] 36.0-36.9, adult; Z79.4 Long term (current) use of insulin; Z88.0 Allergy status to penicillin; Z88.1 Allergy status to other antibiotic agents; Z88.8 Allergy status to other drugs, medicaments and biological substances
CPT/HCPCS: 71020; 74176; 76705; 80048; 80076; 81003; 82948; 83690; 84484; 85027; 85379; 93005; 94640; 94640 76; 99281; 99285; C9113; G0378; J0744; J1170; J1644; J1815; J2060; J2405; J2765; J3010; J7030; Q0169

== ENCOUNTER 2017-06-16 08:47 | Emergency (ER) | payer OTHER ==
[~2017-06-16] VITALS: Ht 162.6 cm; Wt 99.7 kg
[~2017-06-16 08:47] MED LIST changes: +PROZAC10 MG PO
[2017-06-16 09:31] LABS: APPEARANCE CLEAR ((CLEAR)); BILIRUBIN NEGATIVE; BLOOD SMALL; COLOR YELLOW ((YELLOW)); GLUCOSE (STRIP) >=500; KETONES NEGATIVE; LEUKOCYTES NEGATIVE; NITRITE NEGATIVE; PROTEIN (STRIP) NEGATIVE; SPECIFIC GRAVITY 1.033 (1.000-1.030)
[2017-06-16 09:34] LABS: BACTERIA NONE SEEN /HPF; EPITHELIAL CELLS RARE /HPF; MUCUS TRACE /LPF; RED BLOOD CELLS 0-5 /HPF (0-5); WHITE BLOOD CELLS 0-5 /HPF (0-5)
[2017-06-16 10:31] LABS: HEMATOCRIT 31.3 % (36.0-46.0); HEMOGLOBIN 9.8 G/DL (11.9-15.5); MCH 27.8 PG (29.0-34.0); MCHC 31.3 G/DL (30.0-36.0); MCV 88.9 FL (83-99); PLATELET COUNT 87 K/uL (156-360); RBC DIS.WIDTH-SD 66.2 % (39-53); RED BLOOD COUNT 3.52 M/uL (3.80-5.20); WHITE BLOOD COUNT 6.8 K/uL (4.1-10.2)
[2017-06-16 10:39] LABS: INTER. NORMALIZED RATIO 1.3
[2017-06-16 10:40] LABS: ALBUMIN 3.2 g/dL (3.2-4.8); CHLORIDE 101 mEq/L (99-109); POTASSIUM 4.1 mEq/L (3.7-5.4); SODIUM 132 mEq/L (136-147)
[2017-06-16 10:42] LABS: GLUCOSE 329 mg/dL (70-99); PTT 32.7 SEC (25-37)
[2017-06-16 10:44] LABS: TOTAL BILIRUBIN 0.7 mg/dL (0.0-1.0)
[2017-06-16 10:46] LABS: ALKALINE PHOSPHATASE 137 IU/L (3-129); CREATININE 0.8 mg/dL (0.6-1.3); GFR ESTIMATE (CALCULATED) > 59 mL/min/
[2017-06-16 10:47] LABS: UREA NITROGEN (BUN) 11 mg/dL (9-23)
[2017-06-16 10:48] LABS: AST (GOT) 30 IU/L (2-34)
[2017-06-16 10:49] LABS: ALT (GPT) 24 IU/L (3-49)
[2017-06-16 12:55] VITALS: BP 139/76
== END 2017-06-16 12:56 | disposition home or self-care (01) ==
LOC: EME 08:47
PROVIDERS: Emergency Medicine
DX: K64.9 Unspecified hemorrhoids (principal); D69.6 Thrombocytopenia, unspecified; K62.5 Hemorrhage of anus and rectum; D64.9 Anemia, unspecified; E11.9 Type 2 diabetes mellitus without complications; E78.5 Hyperlipidemia, unspecified; I10 Essential (primary) hypertension; Z79.84 Long term (current) use of oral hypoglycemic drugs; J44.9 Chronic obstructive pulmonary disease, unspecified; F32.9 Major depressive disorder, single episode, unspecified; K58.9 Irritable bowel syndrome, unspecified; K21.9 Gastro-esophageal reflux disease without esophagitis; F41.9 Anxiety disorder, unspecified; E03.9 Hypothyroidism, unspecified; Z87.440 Personal history of urinary (tract) infections; Z88.5 Allergy status to narcotic agent; Z88.0 Allergy status to penicillin; Z88.1 Allergy status to other antibiotic agents; Z88.8 Allergy status to other drugs, medicaments and biological substances
CPT/HCPCS: 80053; 81003; 85027; 85610; 85730; 86850; 86870; 86900; 86901; 86905; 86920; 93005; 99281; 99284

== ENCOUNTER 2017-07-14 11:46 | Emergency (ER) | payer OTHER ==
[~2017-07-14] VITALS: Ht 165.1 cm; Wt 100.0 kg
[2017-07-14 12:33] LABS: HEMOGLOBIN 10.8 G/DL (11.9-15.5); MCH 28.6 PG (29.0-34.0); MCHC 31.8 G/DL (30.0-36.0); MCV 89.9 FL (83-99); PLATELET COUNT 107 K/uL (156-360); RBC DIS.WIDTH-CV 17.6 % (11.8-14.6); RBC DIS.WIDTH-SD 58.1 % (39-53); RED BLOOD COUNT 3.78 M/uL (3.80-5.20); WHITE BLOOD COUNT 6.1 K/uL (4.1-10.2)
[2017-07-14 12:48] LABS: CHLORIDE 106 mEq/L (99-109); POTASSIUM 4.2 mEq/L (3.7-5.4); SODIUM 134 mEq/L (136-147)
[2017-07-14 12:49] LABS: GLUCOSE 297 mg/dL (70-99)
[2017-07-14 12:53] LABS: CREATININE 0.8 mg/dL (0.6-1.3); GFR ESTIMATE (CALCULATED) > 59 mL/min/
[2017-07-14 12:54] LABS: UREA NITROGEN (BUN) 9 mg/dL (9-23)
[2017-07-14 12:59] LABS: TROP-I INTERPRETATION NEGATIVE; TROPONIN-I 0.01 ng/mL (0.0-0.30)
[2017-07-14] MEDS ORDERED: BIAXIN500 MG PO (19:01)
[2017-07-14 19:27] VITALS: BP 142/88
== END 2017-07-14 19:29 | disposition home or self-care (01) ==
LOC: EME 11:46
PROVIDERS: Physician Assistant
DX: J18.9 Pneumonia, unspecified organism (principal); J44.0 Chronic obstructive pulmonary disease with (acute) lower respiratory infection; I10 Essential (primary) hypertension; E11.9 Type 2 diabetes mellitus without complications; E78.5 Hyperlipidemia, unspecified; E03.9 Hypothyroidism, unspecified; K58.9 Irritable bowel syndrome, unspecified; K21.9 Gastro-esophageal reflux disease without esophagitis; F41.9 Anxiety disorder, unspecified; F32.9 Major depressive disorder, single episode, unspecified; Z79.84 Long term (current) use of oral hypoglycemic drugs; Z88.5 Allergy status to narcotic agent; Z88.0 Allergy status to penicillin; Z88.8 Allergy status to other drugs, medicaments and biological substances; Z88.1 Allergy status to other antibiotic agents
CPT/HCPCS: 71046; 71275; 80048; 84484; 85027; 85379; 93005; 94640; 94640 76; 99281; 99284; J7040; J7512

== ENCOUNTER 2017-07-22 17:05 | Emergency (ER) | payer OTHER ==
[~2017-07-22] VITALS: Ht 165.1 cm; Wt 100.0 kg
[~2017-07-22 17:05] MED LIST changes: +BIAXIN500 MG PO
[2017-07-22 18:22] LABS: HEMATOCRIT 35.2 % (36.0-46.0); HEMOGLOBIN 11.6 G/DL (11.9-15.5); MCH 29.1 PG (29.0-34.0); MCV 88.4 FL (83-99); PLATELET COUNT 125 K/uL (156-360); RBC DIS.WIDTH-CV 16.2 % (11.8-14.6); RBC DIS.WIDTH-SD 52.9 % (39-53); RED BLOOD COUNT 3.98 M/uL (3.80-5.20); WHITE BLOOD COUNT 7.2 K/uL (4.1-10.2)
[2017-07-22 18:25] LABS: CARBON DIOXIDE (BICARBONATE) 28.3 MEQ/L (20-31)
[2017-07-22 18:34] LABS: CHLORIDE 105 mEq/L (99-109); POTASSIUM 4.4 mEq/L (3.7-5.4); SODIUM 138 mEq/L (136-147)
[2017-07-22 18:35] LABS: GLUCOSE 379 mg/dL (70-99)
[2017-07-22 18:39] LABS: CREATININE 0.9 mg/dL (0.6-1.3); GFR ESTIMATE (CALCULATED) > 59 mL/min/
[2017-07-22 18:40] LABS: UREA NITROGEN (BUN) 15 mg/dL (9-23)
[2017-07-22 19:14] LABS: APPEARANCE CLEAR ((CLEAR)); BILIRUBIN NEGATIVE; BLOOD NEGATIVE; COLOR YELLOW ((YELLOW)); GLUCOSE (STRIP) >=500; KETONES NEGATIVE; LEUKOCYTES NEGATIVE; NITRITE NEGATIVE; PROTEIN (STRIP) NEGATIVE; SPECIFIC GRAVITY 1.029 (1.000-1.030); UCUL ADDED? NO
[2017-07-22 21:00] VITALS: BP 140/85
== END 2017-07-22 21:03 | disposition home or self-care (01) ==
LOC: EME 17:05
PROVIDERS: Physician Assistant
DX: E11.65 Type 2 diabetes mellitus with hyperglycemia (principal); K21.9 Gastro-esophageal reflux disease without esophagitis; J44.9 Chronic obstructive pulmonary disease, unspecified; I10 Essential (primary) hypertension; E78.5 Hyperlipidemia, unspecified; E03.9 Hypothyroidism, unspecified; K58.9 Irritable bowel syndrome, unspecified; F41.9 Anxiety disorder, unspecified; F32.9 Major depressive disorder, single episode, unspecified; Z79.4 Long term (current) use of insulin; Z79.84 Long term (current) use of oral hypoglycemic drugs; Z79.891 Long term (current) use of opiate analgesic; Z96.653 Presence of artificial knee joint, bilateral; Z90.49 Acquired absence of other specified parts of digestive tract
CPT/HCPCS: 80048; 81003; 82010; 82803; 82948; 85027; 99281; 99285; J7030

== ENCOUNTER 2017-07-28 17:54 | Observation (INO) | payer OTHER ==
[~2017-07-28] VITALS: Ht 165.1 cm; Wt 98.6 kg
[2017-07-28 19:01] LABS: HEMATOCRIT 35.7 % (36.0-46.0); HEMOGLOBIN 11.7 G/DL (11.9-15.5); MCH 29.3 PG (29.0-34.0); MCHC 32.8 G/DL (30.0-36.0); MCV 89.3 FL (83-99); PLATELET COUNT 129 K/uL (156-360); RBC DIS.WIDTH-CV 16.2 % (11.8-14.6); WHITE BLOOD COUNT 8.7 K/uL (4.1-10.2)
[2017-07-28 19:05] LABS: CARBON DIOXIDE (BICARBONATE) 25.9 MEQ/L (20-31)
[2017-07-28 19:08] LABS: APPEARANCE SL.HAZY ((CLEAR)); BILIRUBIN NEGATIVE; BLOOD NEGATIVE; COLOR YELLOW ((YELLOW)); GLUCOSE (STRIP) >=500; KETONES NEGATIVE; LEUKOCYTES NEGATIVE; NITRITE NEGATIVE; PROTEIN (STRIP) NEGATIVE; SPECIFIC GRAVITY 1.014 (1.000-1.030)
[2017-07-28 19:12] LABS: ALBUMIN 3.9 g/dL (3.2-4.8); CHLORIDE 104 mEq/L (99-109); POTASSIUM 3.6 mEq/L (3.7-5.4); SODIUM 138 mEq/L (136-147)
[2017-07-28 19:14] LABS: GLUCOSE 238 mg/dL (70-99); TOTAL PROTEIN 7.7 g/dL (6.4-8.3)
[2017-07-28 19:16] LABS: TOTAL BILIRUBIN 1.2 mg/dL (0.0-1.0)
[2017-07-28 19:18] LABS: ALKALINE PHOSPHATASE 166 IU/L (3-129); GFR ESTIMATE (CALCULATED) > 59 mL/min/
[2017-07-28 19:19] LABS: UREA NITROGEN (BUN) 11 mg/dL (9-23)
[2017-07-28 19:20] LABS: AST (GOT) 50 IU/L (2-34)
[2017-07-28 19:21] LABS: BACTERIA RARE /HPF; EPITHELIAL CELLS 1+ /HPF; MUCUS TRACE /LPF; RED BLOOD CELLS 0-5 /HPF (0-5); UCUL ADDED? NO; WHITE BLOOD CELLS 0-5 /HPF (0-5)
[2017-07-28 19:21] LABS: ALT (GPT) 43 IU/L (3-49); LIPASE 26 U/L (1.0-51.0)
[2017-07-28 19:27] LABS: TROP-I INTERPRETATION NEGATIVE; TROPONIN-I 0.02 ng/mL (0.0-0.30)
[2017-07-28] MEDS ORDERED: ADVIL200 MG PO (22:48)
[2017-07-28] MEDS ORDERED: HUMALOG100 UNIT/1 SC (22:51)
[2017-07-28] MEDS ORDERED: LEVEMIR100 UNIT/2 SC (22:52)
[2017-07-28] MEDS ORDERED: NASACORT10.8 ML BOTH NARES (22:53)
[2017-07-29 01:53] VITALS: BP 142/83
[2017-07-29 02:43] LABS: TROP-I INTERPRETATION NEGATIVE; TROPONIN-I 0.01 ng/mL (0.0-0.30)
[2017-07-29 03:58] VITALS: BP 117/63
[2017-07-29 08:05] LABS: HEMATOCRIT 30.3 % (36.0-46.0); MCH 28.2 PG (29.0-34.0); MCHC 31.4 G/DL (30.0-36.0); MCV 89.9 FL (83-99); PLATELET COUNT 94 K/uL (156-360); RBC DIS.WIDTH-CV 16.4 % (11.8-14.6); RBC DIS.WIDTH-SD 53.2 % (39-53); RED BLOOD COUNT 3.37 M/uL (3.80-5.20); WHITE BLOOD COUNT 4.7 K/uL (4.1-10.2)
[2017-07-29 08:06] LABS: HEMOGLOBIN 9.5 G/DL (11.9-15.5)
[2017-07-29 08:22] LABS: TROP-I INTERPRETATION NEGATIVE; TROPONIN-I < 0.01 ng/mL (0.0-0.30)
[2017-07-29 08:26] LABS: ALBUMIN 3.1 G/DL (3.2-4.8); ALKALINE PHOSPHATASE 108 IU/L (3-129); ALT (GPT) 27 IU/L (3-49); AST (GOT) 33 IU/L (2-34); CHLORIDE 107 MEQ/L (99-109); CREATININE 0.7 MG/DL (0.6-1.3); GFR ESTIMATE (CALCULATED) > 59 mL/min/; GLUCOSE 147 mg/dL (70-99); POTASSIUM 3.8 MEQ/L (3.7-5.4); SODIUM 138 MEQ/L (136-147); TOTAL PROTEIN 5.8 G/DL (6.4-8.3); UREA NITROGEN (BUN) 8 mg/dL (9-23)
[2017-07-29 08:40] VITALS: BP 105/69
[2017-07-29 08:53] LABS: THYROTROPIN (TSH) 3.5 MIU/L (0.4-5.5)
[2017-07-29 12:04] VITALS: BP 108/87
[2017-07-29 15:55] VITALS: BP 111/76
[2017-07-29 19:00] VITALS: BP 115/57
[2017-07-30 00:47] VITALS: BP 131/6
[2017-07-30 04:33] VITALS: BP 135/53
[2017-07-30 07:34] VITALS: BP 116/68
[2017-07-30 11:05] VITALS: BP 117/73
== END 2017-07-30 11:52 | disposition home or self-care (01) ==
LOC: EME 17:54 → EDOF 23:47 → 5WEST 23:47 → EDOF 23:47 → ENRESERV 23:48 → 5WEST 07-29 01:44 → ENPENDDIS 07-30 → 5WEST 07-30 11:52
PROVIDERS: Hospitalist; Physician Assistant
DX: R06.02 Shortness of breath (principal); R06.2 Wheezing; R51 Headache; G89.29 Other chronic pain; R10.9 Unspecified abdominal pain; M54.5 Low back pain; B34.9 Viral infection, unspecified; E11.9 Type 2 diabetes mellitus without complications; J44.9 Chronic obstructive pulmonary disease, unspecified; E78.5 Hyperlipidemia, unspecified; K21.9 Gastro-esophageal reflux disease without esophagitis; I10 Essential (primary) hypertension; E03.9 Hypothyroidism, unspecified; R07.89 Other chest pain; R05 Cough; Z79.4 Long term (current) use of insulin; F31.9 Bipolar disorder, unspecified; F41.9 Anxiety disorder, unspecified; Z96.659 Presence of unspecified artificial knee joint; Z90.710 Acquired absence of both cervix and uterus; Z90.49 Acquired absence of other specified parts of digestive tract; Z83.3 Family history of diabetes mellitus; Z82.49 Family history of ischemic heart disease and other diseases of the circulatory system; Z88.0 Allergy status to penicillin; Z88.2 Allergy status to sulfonamides; Z88.8 Allergy status to other drugs, medicaments and biological substances
CPT/HCPCS: 71046; 71275; 80053; 81003; 82010; 82803; 82948; 83605; 83690; 84443; 84484; 85027; 85379; 87040; 87502; 93005; 94640; 94640 76; 99202; 99281; 99285; G0378; J1644; J1815; J2270; J2405; J7030; S0028

== ENCOUNTER 2017-09-10 17:14 | Emergency (ER) | payer OTHER ==
[~2017-09-10] VITALS: Ht 160 cm; Wt 98.1 kg
[~2017-09-10 17:14] MED LIST changes: +ADVIL200 MG PO; +GLUCOPHAGE1000 MG PO; +HUMALOG100 UNIT/1 SC; +LEVEMIR FL100 UNIT/1 SC; +LEVEMIR100 UNIT/2 SC; +NASACORT10.8 ML BOTH NARES
[2017-09-10 18:28] LABS: HEMATOCRIT 34.7 % (36.0-46.0); HEMOGLOBIN 11.3 G/DL (11.9-15.5); MCH 30.5 PG (29.0-34.0); MCHC 32.6 G/DL (30.0-36.0); MCV 93.5 FL (83-99); PLATELET COUNT 111 K/uL (156-360); RBC DIS.WIDTH-CV 18.3 % (11.8-14.6); RBC DIS.WIDTH-SD 61.9 % (39-53); RED BLOOD COUNT 3.71 M/uL (3.80-5.20); WHITE BLOOD COUNT 6.2 K/uL (4.1-10.2)
[2017-09-10 18:46] LABS: CHLORIDE 108 mEq/L (99-109); POTASSIUM 4.1 mEq/L (3.7-5.4); SODIUM 141 mEq/L (136-147)
[2017-09-10 18:48] LABS: GLUCOSE 158 mg/dL (70-99)
[2017-09-10 18:52] LABS: CREATININE 0.8 mg/dL (0.6-1.3); GFR ESTIMATE (CALCULATED) > 59 mL/min/
[2017-09-10 18:53] LABS: TROP-I INTERPRETATION NEGATIVE; TROPONIN-I < 0.01 ng/mL (0.0-0.30); UREA NITROGEN (BUN) 12 mg/dL (9-23)
[2017-09-10 23:15] VITALS: BP 138/87
[2017-09-10 23:58] LABS: TROP-I INTERPRETATION NEGATIVE; TROPONIN-I < 0.01 ng/mL (0.0-0.30)
[2017-09-11] MEDS ORDERED: ZITHROMAX Z-PA250 MG PO (00:28)
[2017-09-11] MEDS ORDERED: PREDNISONE20 MG PO (00:30)
== END 2017-09-11 01:24 | disposition home or self-care (01) ==
LOC: EME 17:14
PROVIDERS: Physician Assistant Medical
DX: J18.9 Pneumonia, unspecified organism (principal); J44.0 Chronic obstructive pulmonary disease with (acute) lower respiratory infection; I10 Essential (primary) hypertension; E78.5 Hyperlipidemia, unspecified; E11.9 Type 2 diabetes mellitus without complications; Z79.4 Long term (current) use of insulin; E03.9 Hypothyroidism, unspecified; K58.9 Irritable bowel syndrome, unspecified; K21.9 Gastro-esophageal reflux disease without esophagitis; F41.9 Anxiety disorder, unspecified; F32.9 Major depressive disorder, single episode, unspecified; F31.9 Bipolar disorder, unspecified; Z87.440 Personal history of urinary (tract) infections; Z90.49 Acquired absence of other specified parts of digestive tract; Z96.659 Presence of unspecified artificial knee joint; Z88.1 Allergy status to other antibiotic agents; Z88.5 Allergy status to narcotic agent; Z88.0 Allergy status to penicillin; Z88.8 Allergy status to other drugs, medicaments and biological substances
CPT/HCPCS: 71046; 71275; 80048; 82948; 84484; 85027; 85379; 93005; 94640; 99281; 99285; J2405; J2930; J7030

== ENCOUNTER 2017-09-18 14:57 | Emergency (ER) | payer OTHER ==
[~2017-09-18] VITALS: Ht 160 cm; Wt 98.7 kg
[2017-09-18 16:29] LABS: HEMATOCRIT 37.3 % (36.0-46.0); HEMOGLOBIN 12.2 G/DL (11.9-15.5); MCH 30.2 PG (29.0-34.0); MCHC 32.7 G/DL (30.0-36.0); MCV 92.3 FL (83-99); PLATELET COUNT 97 K/uL (156-360); RBC DIS.WIDTH-CV 17.4 % (11.8-14.6); RBC DIS.WIDTH-SD 59.7 % (39-53); RED BLOOD COUNT 4.04 M/uL (3.80-5.20); WHITE BLOOD COUNT 9.1 K/uL (4.1-10.2)
[2017-09-18 16:38] LABS: ALBUMIN 3.6 g/dL (3.2-4.8)
[2017-09-18 16:39] LABS: CHLORIDE 111 mEq/L (99-109); POTASSIUM 3.9 mEq/L (3.7-5.4); SODIUM 146 mEq/L (136-147)
[2017-09-18 16:41] LABS: GLUCOSE 96 mg/dL (70-99); TOTAL PROTEIN 6.9 g/dL (6.4-8.3)
[2017-09-18 16:43] LABS: TOTAL BILIRUBIN 1.7 mg/dL (0.0-1.0)
[2017-09-18 16:44] LABS: ALKALINE PHOSPHATASE 162 IU/L (3-129)
[2017-09-18 16:45] LABS: CREATININE 0.8 mg/dL (0.6-1.3); GFR ESTIMATE (CALCULATED) > 59 mL/min/
[2017-09-18 16:46] LABS: AST (GOT) 39 IU/L (2-34); UREA NITROGEN (BUN) 11 mg/dL (9-23)
[2017-09-18 16:47] LABS: ALT (GPT) 34 IU/L (3-49)
[2017-09-18 18:11] LABS: APPEARANCE SL.HAZY ((CLEAR)); BILIRUBIN NEGATIVE; BLOOD NEGATIVE; COLOR YELLOW ((YELLOW)); GLUCOSE (STRIP) NEGATIVE; KETONES NEGATIVE; LEUKOCYTES NEGATIVE; NITRITE NEGATIVE; PROTEIN (STRIP) 30
[2017-09-18 18:18] LABS: BACTERIA 1+ /HPF; CALCIUM OXALATE CRYSTALS 1+ /HPF; EPITHELIAL CELLS 1+ /HPF; MUCUS 1+ /LPF; RED BLOOD CELLS 0-5 /HPF (0-5); UCUL ADDED? YES
[2017-09-18 19:03] LABS: DIRECT BILIRUBIN 0.8 mg/dL (0.0-0.3)
[2017-09-18 19:04] LABS: LIPASE 24 U/L (1.0-51.0)
[2017-09-18] MEDS ORDERED: ZOFRAN ODT4 MG PO (19:11)
[2017-09-18] MEDS ORDERED: BACTRIM,SEPT1 TABLET PO (19:19)
[2017-09-18 19:25] LABS: C DIFF TOXIN NEGATIVE (NEGATIVE)
[2017-09-18 19:45] VITALS: BP 160/86
== END 2017-09-18 20:15 | disposition home or self-care (01) ==
LOC: EME 14:57
PROVIDERS: Nurse Practitioner Family
DX: R10.9 Unspecified abdominal pain (principal); G89.29 Other chronic pain; K74.60 Unspecified cirrhosis of liver; R18.8 Other ascites; R00.0 Tachycardia, unspecified; R74.0 Nonspecific elevation of levels of transaminase and lactic acid dehydrogenase [LDH]; J84.10 Pulmonary fibrosis, unspecified; J44.9 Chronic obstructive pulmonary disease, unspecified; K21.9 Gastro-esophageal reflux disease without esophagitis; I10 Essential (primary) hypertension; E11.9 Type 2 diabetes mellitus without complications; E78.5 Hyperlipidemia, unspecified; E03.9 Hypothyroidism, unspecified; K58.9 Irritable bowel syndrome, unspecified; F41.9 Anxiety disorder, unspecified; F32.9 Major depressive disorder, single episode, unspecified; F31.9 Bipolar disorder, unspecified; Z90.49 Acquired absence of other specified parts of digestive tract; Z87.440 Personal history of urinary (tract) infections; Z96.659 Presence of unspecified artificial knee joint; Z79.4 Long term (current) use of insulin; Z88.1 Allergy status to other antibiotic agents; Z88.8 Allergy status to other drugs, medicaments and biological substances; Z88.5 Allergy status to narcotic agent; Z88.0 Allergy status to penicillin
CPT/HCPCS: 71275; 74177; 80053; 81003; 82248; 83605; 83690; 85027; 87077; 87086; 87186; 87493; 87506; 99281; 99285; J1885; J7030

== ENCOUNTER 2017-09-25 09:41 | Inpatient (IN) | payer OTHER ==
[~2017-09-25] VITALS: Ht 160 cm; Wt 100.1 kg
[2017-09-25 10:35] LABS: BASOPHIL (%) 0.4 % (0-1); BASOPHIL COUNT 0.1 K/uL (0-0.1); EOSINOPHIL (%) 2.1 % (0-5); EOSINOPHIL COUNT 0.4 K/uL (0-0.3); HEMATOCRIT 32.6 % (36.0-46.0); HEMOGLOBIN 10.6 G/DL (11.9-15.5); IMMATURE GRANULOCYTE (%) 0.7 % (0.0-0.7); LYMPHOCYTE (%) 9.3 % (15-42); LYMPHOCYTE COUNT 1.6 K/uL (1.0-2.8); MCH 30.7 PG (29.0-34.0); MCHC 32.5 G/DL (30.0-36.0); MCV 94.5 FL (83-99); MONOCYTE (%) 5.2 % (3-12); MONOCYTE COUNT 0.9 K/uL (0-0.8); NEUTROPHIL (%) 82.3 % (45-76); RBC DIS.WIDTH-CV 18.2 % (11.8-14.6); RBC DIS.WIDTH-SD 62.3 % (39-53); RED BLOOD COUNT 3.45 M/uL (3.80-5.20)
[2017-09-25 10:36] LABS: PLATELET COUNT 143 K/uL (156-360)
[2017-09-25 10:48] LABS: CHLORIDE 106 mEq/L (99-109)
[2017-09-25 10:49] LABS: POTASSIUM 4.5 mEq/L (3.7-5.4); SODIUM 136 mEq/L (136-147)
[2017-09-25 10:50] LABS: GLUCOSE 159 mg/dL (70-99)
[2017-09-25 10:58] LABS: CREATININE 4.9 mg/dL (0.6-1.3); GFR ESTIMATE (CALCULATED) 10 mL/min/; UREA NITROGEN (BUN) 25 mg/dL (9-23)
[2017-09-25 11:13] LABS: TROP-I INTERPRETATION NEGATIVE; TROPONIN-I 0.01 ng/mL (0.0-0.30)
[2017-09-25] MEDS ORDERED: LEVEMIR100 UNIT/2 SC (12:12)
[2017-09-25] MEDS ORDERED: COZAAR50 MG PO (12:13)
[2017-09-25 13:03] LABS: CARBOXY HGB 3.6 % (0-5); COMMENTS - BLOOD GASES A+C+; DEVICE NC; METHEMOGLOBIN 0.8 % (0-1.5); O2 FLOW 2 L/MIN; PCO2 38 mm Hg (35-45); PO2 94 mm Hg (80-100); SITE RR; pH 7.25 (7.35-7.45)
[2017-09-25 13:04] LABS: BASE EXCESS -9.8 mEq/L (-3 to +3); BICARBONATE 16.7 mEq/L (22-26)
[2017-09-25 13:16] LABS: APPEARANCE CLOUDY ((CLEAR)); BILIRUBIN SMALL; BLOOD LARGE; COLOR AMBER ((YELLOW)); GLUCOSE (STRIP) NEGATIVE; KETONES NEGATIVE; LEUKOCYTES NEGATIVE; NITRITE NEGATIVE; PROTEIN (STRIP) 100; SPECIFIC GRAVITY 1.024 (1.000-1.030)
[2017-09-25 13:29] LABS: CHLORIDE 110 mEq/L (99-109); POTASSIUM 4.1 mEq/L (3.7-5.4); SODIUM 138 mEq/L (136-147)
[2017-09-25 13:30] LABS: BACTERIA RARE /HPF; EPITHELIAL CELLS 1+ /HPF; HYALINE CASTS TNTC /LPF; MUCUS 1+ /LPF; UCUL ADDED? YES; WHITE BLOOD CELLS 15-20 /HPF (0-5)
[2017-09-25 13:31] LABS: GLUCOSE 135 mg/dL (70-99)
[2017-09-25 13:35] LABS: CREATININE 4.5 mg/dL (0.6-1.3); GFR ESTIMATE (CALCULATED) 11 mL/min/
[2017-09-25 13:36] LABS: UREA NITROGEN (BUN) 26 mg/dL (9-23)
[2017-09-25 15:33] VITALS: BP 91/52
[2017-09-25 16:26] VITALS: BP 87/50
[2017-09-25 16:39] VITALS: BP 96/52
[2017-09-25 17:05] VITALS: BP 85/48
[2017-09-25 17:44] VITALS: BP 110/52
[2017-09-25 18:50] LABS: ALBUMIN 3.3 g/dL (3.2-4.8)
[2017-09-25 18:55] LABS: ALKALINE PHOSPHATASE 134 IU/L (3-129)
[2017-09-25 18:56] LABS: TOTAL BILIRUBIN 1.1 mg/dL (0.0-1.0)
[2017-09-25 18:58] LABS: AST (GOT) 216 IU/L (2-34); DIRECT BILIRUBIN 0.7 mg/dL (0.0-0.3)
[2017-09-25 18:59] LABS: ALT (GPT) 63 IU/L (3-49); URIC ACID 9.3 mg/dL (3.1-9.2)
[2017-09-25 19:35] VITALS: BP 103/53
[2017-09-26 00:45] VITALS: BP 110/59
[2017-09-26 04:00] VITALS: BP 108/59
[2017-09-26 05:41] LABS: UR CREATININE CONCENTRATION 179.5 MG/DL
[2017-09-26 06:48] LABS: HEMATOCRIT 29.7 % (36.0-46.0); HEMOGLOBIN 9.7 G/DL (11.9-15.5); MCH 30.2 PG (29.0-34.0); MCHC 32.7 G/DL (30.0-36.0); MCV 92.5 FL (83-99); RBC DIS.WIDTH-CV 18.1 % (11.8-14.6); RBC DIS.WIDTH-SD 60.5 % (39-53); RED BLOOD COUNT 3.21 M/uL (3.80-5.20); WHITE BLOOD COUNT 9.3 K/uL (4.1-10.2)
[2017-09-26 07:15] LABS: PLAT.SUFFICIENCY DECREASED
[2017-09-26 07:18] LABS: ALBUMIN 2.9 G/DL (3.2-4.8); CHLORIDE 113 MEQ/L (99-109); PHOSPHORUS 2.5 mg/dL (2.5-4.9); POTASSIUM 3.8 MEQ/L (3.7-5.4); SODIUM 140 MEQ/L (136-147); UREA NITROGEN (BUN) 17 mg/dL (9-23)
[2017-09-26 07:27] LABS: PLATELET COUNT 96 K/uL (156-360)
[2017-09-26 07:29] LABS: CREATININE 1.7 MG/DL (0.6-1.3); GFR ESTIMATE (CALCULATED) 33 mL/min/; GLUCOSE 99 mg/dL (70-99)
[2017-09-26 07:56] VITALS: BP 115/63
[2017-09-26 11:08] VITALS: BP 119/58
[2017-09-26 11:22] LABS: HEMOGLOBIN A1c (GLYCOHEMOGLOB) 7.4 % (Below 5.7)
[2017-09-26 15:07] VITALS: BP 135/70
[2017-09-26 21:17] VITALS: BP 144/71
[2017-09-27 00:24] VITALS: BP 105/53; BP 117/57
[2017-09-27 04:20] VITALS: BP 110/62
[2017-09-27 06:57] LABS: ALBUMIN 3.3 G/DL (3.2-4.8); CHLORIDE 113 MEQ/L (99-109); GLUCOSE 148 mg/dL (70-99); PHOSPHORUS 1.7 mg/dL (2.5-4.9); POTASSIUM 4.1 MEQ/L (3.7-5.4); SODIUM 141 MEQ/L (136-147); UREA NITROGEN (BUN) 10 mg/dL (9-23)
[2017-09-27 06:59] LABS: CREATININE 0.7 MG/DL (0.6-1.3); GFR ESTIMATE (CALCULATED) > 59 mL/min/
[2017-09-27 08:15] LABS: HEMATOCRIT 31.5 % (36.0-46.0); HEMOGLOBIN 10.3 G/DL (11.9-15.5); MCH 29.9 PG (29.0-34.0); MCHC 32.7 G/DL (30.0-36.0); MCV 91.6 FL (83-99); PLATELET COUNT 98 K/uL (156-360); RBC DIS.WIDTH-SD 60.3 % (39-53); RED BLOOD COUNT 3.44 M/uL (3.80-5.20)
[2017-09-27 08:32] VITALS: BP 141/65
[2017-09-27 16:28] VITALS: BP 130/60
== END 2017-09-27 16:56 | disposition home or self-care (01) | DRG 683 ==
LOC: EME 09:41 → EDOF 11:27 → 4EAST 11:27 → ENRESERV 11:31 → 4EAST 15:12 → ENRESERV 09-26 18:18 → 2EAST 09-26 20:45 → ENPENDDIS 09-27 → 2EAST 09-27 16:56
PROVIDERS: Emergency Medicine; Hospitalist; Internal Medicine
DX: N17.9 Acute kidney failure, unspecified (principal); E86.0 Dehydration; I95.1 Orthostatic hypotension; E87.2 Acidosis; I10 Essential (primary) hypertension; E11.9 Type 2 diabetes mellitus without complications; K74.60 Unspecified cirrhosis of liver; E66.01 Morbid (severe) obesity due to excess calories; F32.9 Major depressive disorder, single episode, unspecified; G89.29 Other chronic pain; M54.5 Low back pain; Z79.891 Long term (current) use of opiate analgesic; K76.6 Portal hypertension; R18.8 Other ascites; E78.5 Hyperlipidemia, unspecified; F41.9 Anxiety disorder, unspecified; F31.9 Bipolar disorder, unspecified; E03.9 Hypothyroidism, unspecified; G43.909 Migraine, unspecified, not intractable, without status migrainosus; R65.10 Systemic inflammatory response syndrome (SIRS) of non-infectious origin without acute organ dysfunction; R55 Syncope and collapse; Z68.41 Body mass index [BMI] 40.0-44.9, adult
CPT/HCPCS: 36415; 36600; 70450; 71045; 76770; 80048; 80048 91; 80069; 80076; 81003; 82436; 82565; 82570; 82803; 82948; 83036; 83605; 84300; 84484; 84520; 84550; 85025; 85027; 87040; 87086; 93005; 94640; 94640 76; 94799; 99281; 99285; J0456; J0696; J1815; J2310; J2405; J7030; J7070; J7120; S0028